=== PATIENT | male | born 1945 | race Caucasian/White ===

== ENCOUNTER 2017-04-03 16:03 | Emergency (ER) | payer OTHER ==
[~2017-04-03 16:03] MED LIST: CARDI-OMEGA1000 MG PO; ENALAPRIL10 MG PO; FOLIC ACID0.4 MG PO; HCTZ 25MG25 MG PO; PHENERGAN W/CO120 M1 PO; PREDNISONE10 MG PO; PREDNISONE20 M1 PO; PRILOSEC 20MG20 MG PO; PROVENTIL0.09 MG/A1 IH; PROVENTIL0.09 MG/Ac IH; ST. JOSEPH81 M2 PO; SUNMARK OMEPRAZ20 MG PO; VERAPAMIL240 MG PO; VIBRAMYCIN HYC100 MG PO
[2017-04-03] MEDS ORDERED: GLUCOPHAGE500 MG/TAB PO (16:15)
[2017-04-03 18:02] VITALS: BP 158/94
== END 2017-04-03 18:03 | disposition short-term general hospital (02) ==
LOC: ED 16:03
DX: S61.441A Puncture wound with foreign body of right hand, initial encounter (principal); W45.0XXA Nail entering through skin, initial encounter; W29.4XXA Contact with nail gun, initial encounter; Y93.H3 Activity, building and construction; Y92.007 Garden or yard of unspecified non-institutional (private) residence as the place of occurrence of the external cause
CPT/HCPCS: 90715; J0690; J1885; J3010

== ENCOUNTER 2019-06-02 15:42 | Emergency (ER) | payer MEDICARE, BC ==
[~2019-06-02] VITALS: Ht 175.3 cm; Wt 105.2 kg
[~2019-06-02 15:42] MED LIST changes: -ENALAPRIL10 MG PO; -FOLIC ACID0.4 MG PO; +GLUCOPHAGE500 MG/TAB PO; +PHARMASSURE FO0.4 MG PO; +ST. JOSEPH ASPI81 MG PO; -ST. JOSEPH81 M2 PO; +VASOTEC20 M1 PO
[2019-06-02] MEDS ORDERED: OMEPRAZOLE40 MG PO (15:50)
[2019-06-02] MEDS ORDERED: PLAIN NIACIN250 MG PO (15:51)
[2019-06-02 16:26] LABS: ALBUMIN 3.5 g/dL (3.4-4.8)
[2019-06-02 16:27] LABS: POTASSIUM 4.2 mmol/L (3.5-5.1)
[2019-06-02 16:28] LABS: CALCIUM 8.9 mg/dL (8.3-10.5)
[2019-06-02 16:29] LABS: TOTAL PROTEIN 7.7 g/dL (6.2-8.1)
[2019-06-02 16:31] LABS: TOTAL BILIRUBIN 0.9 mg/dL (0.2-1.2)
[2019-06-02 16:36] LABS: HEMATOCRIT 47.2 % (42.0-52.0); HEMOGLOBIN 16.2 g/dL (13.5-18.0); MEAN CELL VOLUME 91 fl (78-100); MEAN CORPUSCULAR HEMOGLOBIN 31 pg (27-31); MEAN CORPUSCULAR HGB CONC 34 g/dL (33-37); MEAN PLATELET VOLUME 11.1 fl (7.4-10.4); PLATELET COUNT 176 K/mm3 (130-400); RED CELL DISTRIBUTION WIDTH 12.9 % (11.5-14.5); WHITE BLOOD COUNT 18.2 K/mm3 (4.8-10.8)
[2019-06-02 17:09] LABS: LYMPHOCYTE 4 % (20-51); MONOCYTE 4 % (3-10); NEUTROPHILS 91 % (42-75)
[2019-06-02 18:59] LABS: URINE APPEARANCE HAZY; URINE BILIRUBIN NEGATIVE (NEGATIVE); URINE BLOOD TRACE (NEGATIVE); URINE COLOR YELLOW; URINE GLUCOSE 50 mg/dL mg/dL (NEGATIVE); URINE KETONE NEGATIVE (NEGATIVE); URINE NITRATE NEGATIVE (NEGATIVE); URINE PROTEIN(semi-quant) 1+ mg/dL (NEGATIVE); URINE UROBILINOGEN NORMAL (NORMAL)
[2019-06-02 19:00] LABS: URINE LEUKOCYTE ESTERASE 1+ (NEGATIVE)
[2019-06-02 19:01] LABS: URINE MUCUS NOT PRESENT (NOT PRESENT)
[2019-06-02 19:28] VITALS: BP 122/70
[2019-06-02] MEDS ORDERED: ONE DAILY FOR1 EAC2 PO (20:31)
[2019-06-02] MEDS ORDERED: GLUCOPHAGE XR750 MG PO (20:36)
[2019-06-04] MEDS ORDERED: CIPRO500 M1 PO (09:32)
[2019-06-04] MEDS ORDERED: FLAGYL500 M1 PO (09:32)
== END 2019-06-02 19:28 | disposition other institution (70) ==
LOC: ED 15:42
PROVIDERS: Physician Assistant
DX: K52.9 Noninfective gastroenteritis and colitis, unspecified (principal); N17.9 Acute kidney failure, unspecified; E11.9 Type 2 diabetes mellitus without complications; I10 Essential (primary) hypertension; Z79.84 Long term (current) use of oral hypoglycemic drugs; Z98.890 Other specified postprocedural states
CPT/HCPCS: J7030

== ENCOUNTER → 2019-06-12 | Outpatient (CLI) | payer MEDICARE, BC ==
[2019-06-04 11:15] VITALS: BP 155/86
[~2019-06-12] MED LIST changes: +CIPRO500 M1 PO; +FLAGYL500 M1 PO; +GLUCOPHAGE XR750 MG PO; +OMEPRAZOLE40 MG PO; +ONE DAILY FOR1 EAC2 PO; +PLAIN NIACIN250 MG PO
[2019-06-12 15:20] LABS: EOS # 0.2 (0.04-0.40); EOS % 2.1 % (0.0-4.0); HEMOGLOBIN 15.6 g/dL (13.5-18.0); LYMPH# 1.7 (1.50-4.00); MEAN CELL VOLUME 89 fl (78-100); MEAN CORPUSCULAR HEMOGLOBIN 31 pg (27-31); MEAN CORPUSCULAR HGB CONC 35 g/dL (33-37); MEAN PLATELET VOLUME 9.9 fl (7.4-10.4); MONO # 0.6 (0.20-0.80); NEU # 7.7 (1.40-6.50); PLATELET COUNT 265 K/mm3 (130-400); RED BLOOD COUNT 5.06 M/mm3 (4.20-5.60); RED CELL DISTRIBUTION WIDTH 12.3 % (11.5-14.5); WHITE BLOOD COUNT 10.2 K/mm3 (4.8-10.8)
[2019-06-12 15:31] LABS: ALBUMIN 3.6 g/dL (3.4-4.8); POTASSIUM 4.4 mmol/L (3.5-5.1)
[2019-06-12 15:33] LABS: CALCIUM 9.4 mg/dL (8.3-10.5)
[2019-06-12 15:34] LABS: TOTAL PROTEIN 7.7 g/dL (6.2-8.1)
[2019-06-12 15:36] LABS: TOTAL BILIRUBIN 0.4 mg/dL (0.2-1.2)
== END ==
LOC: LAB 15:06
PROVIDERS: Family Medicine
DX: N17.9 Acute kidney failure, unspecified (principal); K52.9 Noninfective gastroenteritis and colitis, unspecified

== ENCOUNTER → 2019-08-01 | Outpatient (CLI) | payer MEDICARE, BC ==
[2019-06-04 11:15] VITALS: BP 155/86
== END ==
LOC: RAD 08:21
DX: K76.0 Fatty (change of) liver, not elsewhere classified (principal); R59.9 Enlarged lymph nodes, unspecified; K57.30 Diverticulosis of large intestine without perforation or abscess without bleeding

== ENCOUNTER → 2019-08-31 | Outpatient (CLI) | payer MEDICARE, BC ==
[2019-06-04 11:15] VITALS: BP 155/86
[2019-08-31 09:26] LABS: POTASSIUM 4.1 mmol/L (3.5-5.1)
[2019-08-31 09:27] LABS: ALBUMIN 3.9 g/dL (3.4-4.8)
[2019-08-31 09:28] LABS: CALCIUM 9.5 mg/dL (8.3-10.5)
[2019-08-31 09:29] LABS: TOTAL PROTEIN 7.4 g/dL (6.2-8.1)
[2019-08-31 09:31] LABS: TOTAL BILIRUBIN 0.6 mg/dL (0.2-1.2)
== END ==
LOC: LAB 09:05
PROVIDERS: Internal Medicine
DX: E11.9 Type 2 diabetes mellitus without complications (principal); I10 Essential (primary) hypertension; E78.5 Hyperlipidemia, unspecified

== ENCOUNTER 2019-11-26 10:56 | Emergency (ER) | payer MEDICARE, BC ==
[~2019-11-26] VITALS: Ht 177.8 cm; Wt 95.5 kg
[2019-11-26] MEDS ORDERED: PREDNISONE20 M1 PO (11:20)
[2019-11-26] MEDS ORDERED: GUAIFEN-CODEINE5 ML PO (11:22)
[2019-11-26 11:32] VITALS: BP 170/92
== END 2019-11-26 11:32 | disposition home or self-care (01) ==
LOC: ED 10:56
DX: J06.9 Acute upper respiratory infection, unspecified (principal); E11.9 Type 2 diabetes mellitus without complications; I10 Essential (primary) hypertension; Z79.82 Long term (current) use of aspirin; Z79.84 Long term (current) use of oral hypoglycemic drugs; Z87.891 Personal history of nicotine dependence

== ENCOUNTER → 2019-11-30 | Outpatient (CLI) | payer MEDICARE, BC ==
[2019-11-26 11:32] VITALS: BP 170/92
[~2019-11-30] MED LIST changes: +GUAIFEN-CODEINE5 ML PO
[2019-11-30 11:35] LABS: POTASSIUM 3.8 mmol/L (3.5-5.1)
[2019-11-30 11:36] LABS: ALBUMIN 4.1 g/dL (3.4-4.8)
[2019-11-30 11:37] LABS: CALCIUM 9.1 mg/dL (8.3-10.5)
[2019-11-30 11:38] LABS: EOS # 0.1 (0.04-0.40); EOS % 0.6 % (0.0-4.0); HEMATOCRIT 46.1 % (42.0-52.0); HEMOGLOBIN 15.4 g/dL (13.5-18.0); LYMPH# 1.9 (1.50-4.00); MEAN CELL VOLUME 92 fl (78-100); MEAN CORPUSCULAR HEMOGLOBIN 31 pg (27-31); MEAN CORPUSCULAR HGB CONC 33 g/dL (33-37); MEAN PLATELET VOLUME 9.8 fl (7.4-10.4); PLATELET COUNT 235 K/mm3 (130-400); RED BLOOD COUNT 5.01 M/mm3 (4.20-5.60); RED CELL DISTRIBUTION WIDTH 12.4 % (11.5-14.5); TOTAL PROTEIN 7.1 g/dL (6.2-8.1); WHITE BLOOD COUNT 12.9 K/mm3 (4.8-10.8)
[2019-11-30 11:39] LABS: NEU # 9.9 (1.40-6.50)
[2019-11-30 11:40] LABS: TOTAL BILIRUBIN 0.4 mg/dL (0.2-1.2)
== END ==
LOC: LAB 11:14
PROVIDERS: Internal Medicine
DX: E11.9 Type 2 diabetes mellitus without complications (principal); I10 Essential (primary) hypertension; E78.2 Mixed hyperlipidemia

== ENCOUNTER → 2021-02-18 | Outpatient (CLI) | payer MEDICARE, BC | LOC: RAD 14:31 | DX: M54.5 Low back pain (principal) ==

== ENCOUNTER → 2021-02-20 | Outpatient (CLI) | payer MEDICARE, BC ==
[2021-02-20 10:17] LABS: POTASSIUM 4.5 mmol/L (3.5-5.1)
[2021-02-20 10:18] LABS: ALBUMIN 3.8 g/dL (3.4-4.8); EOS # 0.1 (0.04-0.40); EOS % 1.2 % (0.0-4.0); HEMATOCRIT 45.4 % (42.0-52.0); HEMOGLOBIN 15.2 g/dL (13.5-18.0); LYMPH# 1.3 (1.50-4.00); MEAN CELL VOLUME 90 fl (78-100); MEAN CORPUSCULAR HEMOGLOBIN 30 pg (27-31); MEAN CORPUSCULAR HGB CONC 34 g/dL (33-37); MEAN PLATELET VOLUME 10.1 fl (7.4-10.4); MONO # 0.8 (0.20-0.80); NEU # 7.8 (1.40-6.50); PLATELET COUNT 219 K/mm3 (130-400); RED BLOOD COUNT 5.03 M/mm3 (4.20-5.60); RED CELL DISTRIBUTION WIDTH 13.7 % (11.5-14.5); WHITE BLOOD COUNT 10.1 K/mm3 (4.8-10.8)
[2021-02-20 10:19] LABS: CALCIUM 9.3 mg/dL (8.3-10.5)
[2021-02-20 10:22] LABS: TOTAL BILIRUBIN 0.8 mg/dL (0.2-1.2)
[2021-02-20 10:27] LABS: MAGNESIUM 2.04 mg/dL (1.60-2.60)
[2021-02-20 11:30] LABS: PH-URINE 5.5 (5.0 - 8.0); URINE APPEARANCE CLEAR; URINE BILIRUBIN NEGATIVE (NEGATIVE); URINE BLOOD NEGATIVE (NEGATIVE); URINE COLOR YELLOW; URINE GLUCOSE NEGATIVE (NEGATIVE); URINE KETONE NEGATIVE (NEGATIVE); URINE LEUKOCYTE ESTERASE NEGATIVE (NEGATIVE); URINE NITRATE NEGATIVE (NEGATIVE); URINE PROTEIN(semi-quant) TRACE mg/dL (NEGATIVE); URINE UROBILINOGEN NORMAL (NORMAL)
[2021-02-20 11:31] LABS: URINE MUCUS PRESENT (NOT PRESENT)
[2021-02-20 11:32] LABS: ERYTHROCYTE SEDIMENTATION RATE 7 mm/hr (0-20)
== END ==
LOC: LAB 09:39
PROVIDERS: Internal Medicine
DX: Z12.5 Encounter for screening for malignant neoplasm of prostate (principal); E78.2 Mixed hyperlipidemia; I10 Essential (primary) hypertension; E11.9 Type 2 diabetes mellitus without complications; K90.9 Intestinal malabsorption, unspecified

== ENCOUNTER → 2021-07-26 | Outpatient (CLI) | payer MEDICARE, BC | LOC: RAD 17:57 | DX: M17.11 Unilateral primary osteoarthritis, right knee (principal); S89.91XA Unspecified injury of right lower leg, initial encounter ==

== ENCOUNTER → 2021-07-31 | Outpatient (CLI) | payer MEDICARE, BC | LOC: RAD 17:20 | DX: S82.401A Unspecified fracture of shaft of right fibula, initial encounter for closed fracture (principal); W19.XXXA Unspecified fall, initial encounter ==

== ENCOUNTER → 2021-09-02 | Outpatient (CLI) | payer MEDICARE, BC ==
[2021-09-02 11:15] LABS: BASO # 0.03 K/mm3 (0.02-0.10); EOS # 0.13 K/mm3 (0.04-0.40); EOS % 1.2 % (0.0-4.0); HEMATOCRIT 48.4 % (42.0-52.0); HEMOGLOBIN 16.2 g/dL (13.5-18.0); LYMPH# 2.42 K/mm3 (1.50-4.00); MEAN CELL VOLUME 93 fl (78-100); MEAN CORPUSCULAR HEMOGLOBIN 31 pg (27-31); MEAN CORPUSCULAR HGB CONC 34 g/dL (33-37); MEAN PLATELET VOLUME 9.6 fl (7.4-10.4); MONO # 0.95 K/mm3 (0.20-0.80); NEU # 7.46 K/mm3 (1.40-6.50); PLATELET COUNT 211 K/mm3 (130-400); RED CELL DISTRIBUTION WIDTH 12.3 % (11.5-14.5)
[2021-09-02 11:23] LABS: POTASSIUM 4.4 mmol/L (3.5-5.1)
[2021-09-02 11:25] LABS: CALCIUM 9.8 mg/dL (8.3-10.5)
[2021-09-02 11:26] LABS: TOTAL PROTEIN 7.4 g/dL (6.2-8.1)
[2021-09-02 11:28] LABS: TOTAL BILIRUBIN 0.7 mg/dL (0.2-1.2)
[2021-09-02 11:32] LABS: MAGNESIUM 2.23 mg/dL (1.60-2.60)
== END ==
LOC: LAB 10:52
PROVIDERS: Internal Medicine
DX: E11.9 Type 2 diabetes mellitus without complications (principal); E78.2 Mixed hyperlipidemia; I10 Essential (primary) hypertension; K90.9 Intestinal malabsorption, unspecified

== ENCOUNTER → 2022-01-13 | Outpatient (CLI) | payer MEDICARE, BC | LOC: RAD 14:07 | DX: M47.816 Spondylosis without myelopathy or radiculopathy, lumbar region (principal); M16.12 Unilateral primary osteoarthritis, left hip ==

== ENCOUNTER → 2022-03-10 | Outpatient (CLI) | payer MEDICARE, BC ==
[2022-03-10 16:46] LABS: BASO # 0.03 K/mm3 (0.02-0.10); EOS # 0.09 K/mm3 (0.04-0.40); EOS % 0.9 % (0.0-4.0); HEMATOCRIT 41.7 % (42.0-52.0); HEMOGLOBIN 14.1 g/dL (13.5-18.0); LYMPH# 1.99 K/mm3 (1.50-4.00); MEAN CELL VOLUME 93 fl (78-100); MEAN CORPUSCULAR HEMOGLOBIN 31 pg (27-31); MEAN CORPUSCULAR HGB CONC 34 g/dL (33-37); MEAN PLATELET VOLUME 9.9 fl (7.4-10.4); MONO # 0.65 K/mm3 (0.20-0.80); NEU # 6.75 K/mm3 (1.40-6.50); PLATELET COUNT 208 K/mm3 (130-400); RED BLOOD COUNT 4.49 M/mm3 (4.20-5.60); RED CELL DISTRIBUTION WIDTH 13.6 % (11.5-14.5); WHITE BLOOD COUNT 9.5 K/mm3 (4.8-10.8)
[2022-03-10 16:50] LABS: POTASSIUM 3.7 mmol/L (3.5-5.1)
[2022-03-10 16:51] LABS: ALBUMIN 3.7 g/dL (3.4-4.8)
[2022-03-10 16:52] LABS: CALCIUM 8.9 mg/dL (8.3-10.5)
[2022-03-10 16:53] LABS: TOTAL PROTEIN 6.6 g/dL (6.2-8.1)
[2022-03-10 16:55] LABS: TOTAL BILIRUBIN 0.5 mg/dL (0.2-1.2)
[2022-03-10 17:00] LABS: MAGNESIUM 1.82 mg/dL (1.60-2.60)
[2022-03-10 18:16] LABS: URINE APPEARANCE CLEAR; URINE BILIRUBIN 1+ (NEGATIVE); URINE BLOOD 50 ery/uL (NEGATIVE); URINE COLOR YELLOW; URINE GLUCOSE NEGATIVE (NEGATIVE); URINE KETONE NEGATIVE (NEGATIVE); URINE NITRATE NEGATIVE (NEGATIVE); URINE PROTEIN(semi-quant) TRACE (NEGATIVE); URINE UROBILINOGEN 1 mg/dL (NORMAL)
[2022-03-10 18:17] LABS: URINE LEUKOCYTE ESTERASE NEGATIVE (NEGATIVE); URINE MUCUS PRESENT (NOT PRESENT)
[2022-03-10 19:37] LABS: ERYTHROCYTE SEDIMENTATION RATE 18 mm/hr (0-20)
== END ==
LOC: LAB 15:55
PROVIDERS: Internal Medicine
DX: Z12.5 Encounter for screening for malignant neoplasm of prostate (principal); Z12.11 Encounter for screening for malignant neoplasm of colon; I10 Essential (primary) hypertension; K90.9 Intestinal malabsorption, unspecified; E78.2 Mixed hyperlipidemia; E11.9 Type 2 diabetes mellitus without complications

== ENCOUNTER → 2022-03-12 | Outpatient (CLI) | payer MEDICARE, BC | LOC: LAB 21:00 | DX: Z12.11 Encounter for screening for malignant neoplasm of colon (principal); Z12.5 Encounter for screening for malignant neoplasm of prostate; E11.9 Type 2 diabetes mellitus without complications; E78.2 Mixed hyperlipidemia; I10 Essential (primary) hypertension; K90.9 Intestinal malabsorption, unspecified ==

== ENCOUNTER 2022-04-01 10:29 | Outpatient (RCR) | payer MEDICARE, BC | END 2022-04-30 | disposition home or self-care (01) | LOC: PT | DX: M70.71 Other bursitis of hip, right hip (principal) ==

== ENCOUNTER 2022-05-07 14:30 | Outpatient (RCR) | payer MEDICARE, BC | END 2022-05-31 | disposition home or self-care (01) | LOC: PT | DX: M70.61 Trochanteric bursitis, right hip (principal); M70.62 Trochanteric bursitis, left hip ==

== ENCOUNTER 2022-06-02 07:55 | Outpatient (RCR) | payer MEDICARE, BC ==
[2022-06-28] MEDS ORDERED: PAXLOVID CO-PA1 EACH PO (17:15)
[2022-06-28] MEDS ORDERED: ACETAMINOPHEN-H1 TA2 PO (17:15)
[2022-06-28] MEDS ORDERED: GLIMEPIRIDE2 M1 PO (17:16)
[2022-06-28] MEDS ORDERED: ATORVASTATIN CA40 MG PO (17:16)
[2022-06-28] MEDS ORDERED: KETOROLAC10 MG PO (19:00)
== END 2022-07-01 ==
LOC: PT
DX: M70.61 Trochanteric bursitis, right hip (principal)

== ENCOUNTER → 2022-06-05 | Outpatient (CLI) | payer MEDICARE, BC ==
[~2022-06-05] VITALS: Ht 177.8 cm; Wt 95.5 kg
[2022-06-05 10:39] LABS: CALCIUM 9.2 mg/dL (8.3-10.5)
[2022-06-05 10:40] LABS: TOTAL PROTEIN 6.6 g/dL (6.2-8.1)
[2022-06-05 10:42] LABS: TOTAL BILIRUBIN 0.5 mg/dL (0.2-1.2)
[2022-06-05 10:46] LABS: MAGNESIUM 2.03 mg/dL (1.60-2.60)
[2022-06-05 10:51] LABS: PROTHROMBIN TIME 10.1 SECONDS (9.0-12.0)
[2022-06-05 10:52] LABS: BASO # 0.02 K/mm3 (0.02-0.10); EOS # 0.25 K/mm3 (0.04-0.40); EOS % 3.5 % (0.0-4.0); HEMATOCRIT 46.1 % (42.0-52.0); HEMOGLOBIN 15.3 g/dL (13.5-18.0); LYMPH# 1.91 K/mm3 (1.50-4.00); MEAN CELL VOLUME 95 fl (78-100); MEAN CORPUSCULAR HEMOGLOBIN 32 pg (27-31); MEAN CORPUSCULAR HGB CONC 33 g/dL (33-37); MEAN PLATELET VOLUME 10.3 fl (7.4-10.4); MONO # 0.67 K/mm3 (0.20-0.80); NEU # 4.24 K/mm3 (1.40-6.50); PLATELET COUNT 210 K/mm3 (130-400); RED BLOOD COUNT 4.86 M/mm3 (4.20-5.60); RED CELL DISTRIBUTION WIDTH 11.8 % (11.5-14.5); WHITE BLOOD COUNT 7.1 K/mm3 (4.8-10.8)
[2022-06-05 11:19] LABS: URINE APPEARANCE CLEAR; URINE BILIRUBIN NEGATIVE (NEGATIVE); URINE BLOOD NEGATIVE (NEGATIVE); URINE COLOR YELLOW; URINE GLUCOSE NEGATIVE (NEGATIVE); URINE KETONE NEGATIVE (NEGATIVE); URINE LEUKOCYTE ESTERASE NEGATIVE (NEGATIVE); URINE NITRATE NEGATIVE (NEGATIVE); URINE PROTEIN(semi-quant) NEGATIVE (NEGATIVE); URINE UROBILINOGEN NORMAL (NORMAL)
[2022-06-05 11:20] LABS: URINE WBC 0-1 /hpf (0-3)
== END ==
LOC: AMSURD 09:42
PROVIDERS: Internal Medicine
DX: Z01.818 Encounter for other preprocedural examination (principal); E11.9 Type 2 diabetes mellitus without complications

== ENCOUNTER → 2022-06-24 | Outpatient (CLI) | payer MEDICARE, BC ==
[~2022-06-24] MED LIST changes: +ACETAMINOPHEN-H1 TA2 PO; +ATORVASTATIN CA40 MG PO; +GLIMEPIRIDE2 M1 PO; +KETOROLAC10 MG PO; +PAXLOVID CO-PA1 EACH PO
== END ==
LOC: RAD 11:23
DX: M70.61 Trochanteric bursitis, right hip (principal)

== ENCOUNTER 2022-06-28 15:17 | Emergency (ER) | payer MEDICARE, BC ==
[~2022-06-28] VITALS: Ht 175.3 cm; Wt 105.6 kg
[~2022-06-28 15:17] MED LIST changes: -ACETAMINOPHEN-H1 TA2 PO; -ATORVASTATIN CA40 MG PO; -GLIMEPIRIDE2 M1 PO; -KETOROLAC10 MG PO; -PAXLOVID CO-PA1 EACH PO
[2022-06-28 16:00] VITALS: BP 129/75
[2022-06-28 16:39] LABS: BASO # 0.01 K/mm3 (0.02-0.10); EOS # 0.14 K/mm3 (0.04-0.40); EOS % 2.3 % (0.0-4.0); HEMATOCRIT 39.1 % (42.0-52.0); HEMOGLOBIN 12.7 g/dL (13.5-18.0); LYMPH# 0.61 K/mm3 (1.50-4.00); MEAN CELL VOLUME 95 fl (78-100); MEAN CORPUSCULAR HEMOGLOBIN 31 pg (27-31); MEAN CORPUSCULAR HGB CONC 33 g/dL (33-37); MEAN PLATELET VOLUME 10.1 fl (7.4-10.4); MONO # 0.65 K/mm3 (0.20-0.80); PLATELET COUNT 197 K/mm3 (130-400); RED BLOOD COUNT 4.13 M/mm3 (4.20-5.60); RED CELL DISTRIBUTION WIDTH 12.2 % (11.5-14.5); WHITE BLOOD COUNT 6.1 K/mm3 (4.8-10.8)
[2022-06-28 16:43] LABS: ALBUMIN 3.6 g/dL (3.4-4.8)
[2022-06-28 16:46] LABS: TOTAL PROTEIN 6.4 g/dL (6.2-8.1)
[2022-06-28 16:48] LABS: TOTAL BILIRUBIN 0.6 mg/dL (0.2-1.2)
[2022-06-28] MEDS ORDERED: ACETAMINOPHEN-H1 TA2 PO (17:15)
[2022-06-28] MEDS ORDERED: PAXLOVID CO-PA1 EACH PO (17:15)
[2022-06-28] MEDS ORDERED: ATORVASTATIN CA40 MG PO (17:16)
[2022-06-28] MEDS ORDERED: GLIMEPIRIDE2 M1 PO (17:16)
[2022-06-28] MEDS ORDERED: KETOROLAC10 MG PO (19:00)
== END 2022-06-28 19:32 | disposition home or self-care (01) ==
LOC: ED 15:17
PROVIDERS: Family Medicine
DX: U07.1 COVID-19 (principal); M25.551 Pain in right hip; Z98.890 Other specified postprocedural states
CPT/HCPCS: J1885

== ENCOUNTER → 2022-07-07 | Outpatient (CLI) | payer MEDICARE, BC ==
[~2022-07-07] MED LIST changes: +ACETAMINOPHEN-H1 TA2 PO; +ATORVASTATIN CA40 MG PO; +GLIMEPIRIDE2 M1 PO; +KETOROLAC10 MG PO; +PAXLOVID CO-PA1 EACH PO
== END ==
LOC: VAS 15:04 → RAD 15:04
DX: M79.604 Pain in right leg (principal); M79.89 Other specified soft tissue disorders

== ENCOUNTER → 2022-07-14 | Outpatient (CLI) | payer MEDICARE, BC | LOC: VAS 16:04 → RAD 16:04 | DX: R60.0 Localized edema (principal) ==

== ENCOUNTER 2022-09-01 13:08 | Outpatient (RCR) | payer MEDICARE, BC | END 2022-09-30 | disposition home or self-care (01) | LOC: PT | DX: R60.0 Localized edema (principal) ==

== ENCOUNTER → 2022-12-11 | Outpatient (CLI) | payer MEDICARE, BC ==
[2022-12-11 11:19] LABS: BASO # 0.02 K/mm3 (0.02-0.10); EOS # 0.29 K/mm3 (0.04-0.40); HEMATOCRIT 42.4 % (42.0-52.0); HEMOGLOBIN 14.8 g/dL (13.5-18.0); LYMPH# 1.44 K/mm3 (1.50-4.00); MEAN CELL VOLUME 90 fl (78-100); MEAN CORPUSCULAR HEMOGLOBIN 31 pg (27-31); MEAN CORPUSCULAR HGB CONC 35 g/dL (33-37); MEAN PLATELET VOLUME 9.4 fl (7.4-10.4); MONO # 0.73 K/mm3 (0.20-0.80); NEU # 4.83 K/mm3 (1.40-6.50); PLATELET COUNT 189 K/mm3 (130-400); RED BLOOD COUNT 4.73 M/mm3 (4.20-5.60); RED CELL DISTRIBUTION WIDTH 12.8 % (11.5-14.5); WHITE BLOOD COUNT 7.3 K/mm3 (4.8-10.8)
[2022-12-11 11:20] LABS: ALBUMIN 4.3 g/dL (3.4-4.8); POTASSIUM 4.8 mmol/L (3.5-5.1)
[2022-12-11 11:21] LABS: CALCIUM 9.9 mg/dL (8.3-10.5)
[2022-12-11 11:22] LABS: TOTAL PROTEIN 7.3 g/dL (6.2-8.1)
[2022-12-11 11:24] LABS: TOTAL BILIRUBIN 0.9 mg/dL (0.2-1.2)
[2022-12-11 11:29] LABS: MAGNESIUM 2.03 mg/dL (1.60-2.60)
== END ==
LOC: LAB 10:57
PROVIDERS: Internal Medicine
DX: I87.2 Venous insufficiency (chronic) (peripheral) (principal); I10 Essential (primary) hypertension; K90.9 Intestinal malabsorption, unspecified; E11.9 Type 2 diabetes mellitus without complications; M25.551 Pain in right hip

== ENCOUNTER → 2023-07-15 | Outpatient (CLI) | payer MEDICARE, BC ==
[2023-07-15 13:06] LABS: BASO # 0.02 K/mm3 (0.02-0.10); EOS # 0.13 K/mm3 (0.04-0.40); EOS % 1.8 % (0.0-4.0); HEMATOCRIT 39.6 % (42.0-52.0); HEMOGLOBIN 13.2 g/dL (13.5-18.0); LYMPH# 1.19 K/mm3 (1.50-4.00); MEAN CELL VOLUME 95 fl (78-100); MEAN CORPUSCULAR HEMOGLOBIN 32 pg (27-31); MEAN CORPUSCULAR HGB CONC 33 g/dL (33-37); MEAN PLATELET VOLUME 9.7 fl (7.4-10.4); NEU # 5.36 K/mm3 (1.40-6.50); PLATELET COUNT 180 K/mm3 (130-400); RED BLOOD COUNT 4.16 M/mm3 (4.20-5.60); RED CELL DISTRIBUTION WIDTH 12.1 % (11.5-14.5); WHITE BLOOD COUNT 7.3 K/mm3 (4.8-10.8)
[2023-07-15 13:11] LABS: ALBUMIN 3.7 g/dL (3.4-4.8)
[2023-07-15 13:14] LABS: TOTAL PROTEIN 6.2 g/dL (6.2-8.1)
[2023-07-15 13:15] LABS: TOTAL BILIRUBIN 0.9 mg/dL (0.2-1.2)
[2023-07-15 13:20] LABS: MAGNESIUM 1.84 mg/dL (1.60-2.60)
[2023-07-15 14:12] LABS: ERYTHROCYTE SEDIMENTATION RATE 16 mm/hr (0-20)
[2023-07-19 22:07] LABS: VITAMIN B1 101.1 nmol/L (())
== END ==
LOC: LAB 12:34
PROVIDERS: Internal Medicine
DX: M70.61 Trochanteric bursitis, right hip (principal); I10 Essential (primary) hypertension; E11.9 Type 2 diabetes mellitus without complications; E87.1 Hypo-osmolality and hyponatremia; M51.9 Unspecified thoracic, thoracolumbar and lumbosacral intervertebral disc disorder; E78.2 Mixed hyperlipidemia; K63.5 Polyp of colon; R41.3 Other amnesia

== ENCOUNTER → 2023-07-19 | Outpatient (CLI) | payer MEDICARE, BC ==
[2023-07-23 16:09] LABS: A/G RATIO (PEP) 1.2 (0.7-1.7)
== END ==
LOC: LAB 13:30
PROVIDERS: Internal Medicine
DX: M70.61 Trochanteric bursitis, right hip (principal); I10 Essential (primary) hypertension; E11.9 Type 2 diabetes mellitus without complications; E87.1 Hypo-osmolality and hyponatremia; M51.9 Unspecified thoracic, thoracolumbar and lumbosacral intervertebral disc disorder; R60.0 Localized edema; E78.2 Mixed hyperlipidemia; M25.551 Pain in right hip; K63.5 Polyp of colon; R41.3 Other amnesia

== ENCOUNTER → 2023-09-28 | Outpatient (CLI) | payer MEDICARE, BC ==
[2023-09-28 08:27] LABS: URINE WBC 0 /hpf (0-3)
[2023-09-28 08:37] LABS: BASO # 0.02 K/mm3 (0.02-0.10); EOS # 0.26 K/mm3 (0.04-0.40); EOS % 3.9 % (0.0-4.0); HEMATOCRIT 41.6 % (42.0-52.0); HEMOGLOBIN 13.9 g/dL (13.5-18.0); LYMPH# 1.17 K/mm3 (1.50-4.00); MEAN CELL VOLUME 96 fl (78-100); MEAN CORPUSCULAR HEMOGLOBIN 32 pg (27-31); MEAN CORPUSCULAR HGB CONC 33 g/dL (33-37); MONO # 0.57 K/mm3 (0.20-0.80); NEU # 4.63 K/mm3 (1.40-6.50); PLATELET COUNT 229 K/mm3 (130-400); RED BLOOD COUNT 4.32 M/mm3 (4.20-5.60); RED CELL DISTRIBUTION WIDTH 12.8 % (11.5-14.5); WHITE BLOOD COUNT 6.7 K/mm3 (4.8-10.8)
[2023-09-28 08:46] LABS: ALBUMIN 3.9 g/dL (3.4-4.8)
[2023-09-28 08:47] LABS: CALCIUM 9.1 mg/dL (8.3-10.5)
[2023-09-28 08:50] LABS: TOTAL BILIRUBIN 1.4 mg/dL (0.2-1.2)
[2023-09-28 09:19] LABS: URINE APPEARANCE CLEAR; URINE BILIRUBIN NEGATIVE (NEGATIVE); URINE BLOOD NEGATIVE (NEGATIVE); URINE COLOR YELLOW; URINE GLUCOSE NEGATIVE (NEGATIVE); URINE KETONE NEGATIVE (NEGATIVE); URINE LEUKOCYTE ESTERASE NEGATIVE (NEGATIVE); URINE MUCUS PRESENT (NOT PRESENT); URINE NITRATE NEGATIVE (NEGATIVE); URINE PROTEIN(semi-quant) TRACE (NEGATIVE); URINE UROBILINOGEN NORMAL (NORMAL)
[2023-09-28 23:34] LABS: MAGNESIUM 1.86 mg/dL (1.60-2.60)
== END ==
LOC: LAB 08:19
PROVIDERS: Internal Medicine
DX: Z01.818 Encounter for other preprocedural examination (principal); Z12.5 Encounter for screening for malignant neoplasm of prostate; E11.9 Type 2 diabetes mellitus without complications; E78.2 Mixed hyperlipidemia

== ENCOUNTER → 2024-10-17 | Outpatient (CLI) | payer MEDICARE, BC ==
[2024-10-17 09:20] LABS: BASO # 0.02 K/mm3 (0.02-0.10); EOS # 0.28 K/mm3 (0.04-0.40); EOS % 3.9 % (0.0-4.0); HEMATOCRIT 42.9 % (42.0-52.0); HEMOGLOBIN 14.6 g/dL (13.5-18.0); LYMPH# 1.22 K/mm3 (1.50-4.00); MEAN CELL VOLUME 93 fl (78-100); MEAN CORPUSCULAR HEMOGLOBIN 32 pg (27-31); MEAN CORPUSCULAR HGB CONC 34 g/dL (33-37); MEAN PLATELET VOLUME 9.6 fl (7.4-10.4); MONO # 0.71 K/mm3 (0.20-0.80); NEU # 4.88 K/mm3 (1.40-6.50); PLATELET COUNT 242 K/mm3 (130-400); RED CELL DISTRIBUTION WIDTH 12.2 % (11.5-14.5); WHITE BLOOD COUNT 7.1 K/mm3 (4.8-10.8)
[2024-10-17 09:25] LABS: CALCIUM 9.5 mg/dL (8.3-10.5)
[2024-10-17 09:26] LABS: TOTAL PROTEIN 7.1 g/dL (6.2-8.1)
[2024-10-17 09:28] LABS: TOTAL BILIRUBIN 0.6 mg/dL (0.2-1.2)
[2024-10-17 09:33] LABS: MAGNESIUM 1.99 mg/dL (1.60-2.60)
[2024-10-17 10:51] LABS: URINE APPEARANCE CLEAR (CLEAR); URINE BILIRUBIN NEGATIVE (NEGATIVE); URINE BLOOD NEGATIVE (NEGATIVE); URINE COLOR LIGHT YELLOW (YELLOW); URINE GLUCOSE NEGATIVE (NEGATIVE); URINE KETONE NEGATIVE (NEGATIVE); URINE LEUKOCYTE ESTERASE TRACE (NEGATIVE); URINE NITRATE NEGATIVE (NEGATIVE); URINE PROTEIN(semi-quant) NEGATIVE (NEGATIVE)
== END ==
LOC: RAD 08:15
PROVIDERS: Internal Medicine
DX: M47.816 Spondylosis without myelopathy or radiculopathy, lumbar region (principal); M48.56XA Collapsed vertebra, not elsewhere classified, lumbar region, initial encounter for fracture

== ENCOUNTER → 2024-10-20 | Outpatient (CLI) | payer MEDICARE, BC | LOC: LAB 14:31 | DX: Z12.5 Encounter for screening for malignant neoplasm of prostate (principal); Z12.11 Encounter for screening for malignant neoplasm of colon; I10 Essential (primary) hypertension; E11.9 Type 2 diabetes mellitus without complications; E78.2 Mixed hyperlipidemia ==

== ENCOUNTER → 2024-11-20 | Outpatient (CLI) | payer MEDICARE, BC ==
[2024-11-20 10:49] LABS: URINE WBC 0 /hpf (0-3)
[2024-11-20 11:10] LABS: PH-URINE 5.5 (5.0 - 8.0); URINE APPEARANCE CLEAR (CLEAR); URINE BILIRUBIN NEGATIVE (NEGATIVE); URINE BLOOD NEGATIVE (NEGATIVE); URINE COLOR YELLOW (YELLOW); URINE GLUCOSE NEGATIVE (NEGATIVE); URINE KETONE NEGATIVE (NEGATIVE); URINE LEUKOCYTE ESTERASE NEGATIVE (NEGATIVE); URINE NITRATE NEGATIVE (NEGATIVE); URINE PROTEIN(semi-quant) NEGATIVE (NEGATIVE)
== END ==
LOC: LAB 10:24
PROVIDERS: Internal Medicine
DX: N39.0 Urinary tract infection, site not specified (principal)